=== PATIENT | male | born 1960 | race Caucasian/White ===

== ENCOUNTER 2018-05-12 16:37 | Emergency (ER) | payer OTHER ==
[2018-05-12] MEDS: IBUPROFEN 600 MG TAB PO (18:52)
[2018-05-12] MEDS: HYDROCODONE/APAP (5/325) TAB PO (20:03)
== END 2018-05-12 20:09 | disposition home or self-care (01) ==
LOC: FTE 16:37
DX: S92.001A Unspecified fracture of right calcaneus, initial encounter for closed fracture (principal); W17.2XXA Fall into hole, initial encounter; Y92.9 Unspecified place or not applicable
CPT/HCPCS: 29515; 73610-RT; 73630; 99283-25